=== PATIENT | female | born 1990 | race Caucasian/White ===

== ENCOUNTER 2017-09-03 00:15 | Emergency (ER) | payer OTHER ==
[2017-09-03] MEDS ORDERED: MORPHINE SULFATE 2 MG/ML SYRINGE IM STA (01:02)
--- NOTE | 2017-09-03 01:05 | XR ---
EXAMINATION TYPE: XR ankle complete RT DATE OF EXAM: 09/03/2017 COMPARISON: NONE HISTORY: Ankle pain after injury TECHNIQUE: 3 views FINDINGS: There is bimalleolar fracture of the right ankle with 2 cm lateral displacement of the talu s. There is displacement of the tibia and fibula fragments up to 1 cm. Subtalar joint is intact. IMPRESSION: Displaced bimalleolar fracture of the right ankle with significant lateral subluxation of the talus.
--- NOTE | 2017-09-03 01:06 | XR ---
EXAMINATION TYPE: XR foot complete RT DATE OF EXAM: 09/03/2017 COMPARISON: NONE HISTORY: Pain TECHNIQUE: 3 views FINDINGS: Metatarsals are intact. Tarsal bones are intact. Joint spaces are fairly normal. There is b imalleolar fracture of the ankle. IMPRESSION: The bones of the foot are intact. Ankle fracture noted.
[2017-09-03] MEDS ORDERED: ETOMIDATE 2 MG/ML 10 ML VIAL IVP STA (01:25)
[2017-09-03 01:53] VITALS: RESP 18
--- NOTE | 2017-09-03 02:12 | ED ---
Lower Extremity Injury HPI <Bradford Jain - Last Filed: 09/03/17 02:18> - General Source: patient Mode of arrival: wheelchair Limitations: no limitations <Aleah Harrison - Last Filed: 09/03/17 05:15> - General Chief Complaint: Extremity Injury, Lower Stated Complaint: Ankle injury Time Seen by Provider: 09/03/17 00:38 - History of Present Illness Initial Comments: 26-year-old female patient presents to emergency department today for complaints of right ankle pain. Patient states that she was walking down the sidewalk when her flip flop caught in a manhole and she twisted the ankle and fell. Patient denies hitting her head or losing consciousness during the fall. Patient states the pain to her right ankle is severe. Patient states that radiates down into her foot and upper leg. She denies any numbness or tingling to the foot. She denies any pain in her knee or upper leg. Denies any history of injury to the ankle. Patient denies any headache, neck pain, back pain, chest pain, shortness of breath, dizziness, weakness, abdominal pain, nausea, vomiting, or difficulties with bowel movements or urination. (Aleah Harrison) - Related Data Previous Rx's Medication Instructions Recorded Hydrocodone/Acetaminophen [[place] 1 tab PO Q4HR PRN #18 tab 09/03/17 5-325] Allergies Allergy/AdvReac Type Severity Reaction Status Date / Time Sulfa (Sulfonamide Allergy Itching Verified 09/03/17 00:20 Antibiotics) Review of Systems ROS Other: All systems not noted in ROS Statement are negative. <Bradford Jain - Last Filed: 09/03/17 02:18> ROS Other: All systems not noted in ROS Statement are negative. <Aleah Harrison - Last Filed: 09/03/17 05:15> ROS Statement: Those systems with pertinent positive or pertinent negative responses have been documented in the HPI. Past Medical History Past Medical History: No Reported History History of Any Multi-Drug Resistant Organisms: None Reported Additional Past Surgical History / Comment(s): eustachian tubes. vaginal cyst removed Past Psychological History: No Psychological Hx Reported Smoking Status: Former smoker Past Alcohol Use History: Occasional Past Drug Use History: None Reported <Aleah Harrison - Last Filed: 09/03/17 05:15> General Exam Limitations: no limitations General appearance: alert, in no apparent distress, anxious, other (This is a well-developed, well-nourished adult female patient in mild distress related to pain. Vital signs upon presentation are temperature 98.4F, pulse 1:15, respirations 36, blood pressure 135/91, pulse ox 98% on room air.) Head exam: Present: atraumatic, normocephalic, normal inspection Eye exam: Present: normal appearance, PERRL, EOMI. Absent: scleral icterus, conjunctival injection, periorbital swelling ENT exam: Present: normal exam, normal oropharynx, mucous membranes moist Neck exam: Present: normal inspection, full ROM, other (Nontender, no step-off, no deformity to firm midline palpation of the posterior cervical spine. Full range of motion without pain or limitation.). Absent: tenderness, meningismus, lymphadenopathy Respiratory exam: Present: normal lung sounds bilaterally. Absent: respiratory distress, wheezes, rales, rhonchi, stridor Cardiovascular Exam: Present: normal rhythm, tachycardia, normal heart sounds. Absent: systolic murmur, diastolic murmur, rubs, gallop, clicks GI/Abdominal exam: Present: soft, normal bowel sounds. Absent: distended, tenderness, guarding, rebound, rigid Extremities exam: Present: full ROM, tenderness (Tenderness surrounding the right ankle, fifth metatarsal tenderness), normal capillary refill, other ( Patient has swelling surrounding the right ankle. Tender over the medial lateral malleolus. Pedal and post tibial pulses intact. Skin is pink, warm, and dry. Cap refills less than 3 seconds.). Absent: normal inspection, pedal edema, joint swelling, calf tenderness Back exam: Present: normal inspection. Absent: vertebral tenderness Neurological exam: Present: alert, oriented X3, CN II-XII intact Psychiatric exam: Present: normal affect, normal mood, anxious, other ( hyperventilating) Skin exam: Present: warm, dry, intact, normal color. Absent: rash <Aleah Harrison - Last Filed: 09/03/17 05:15> Course <Bradford Jain - Last Filed: 09/03/17 02:18> <Aleah Harrison - Last Filed: 09/03/17 05:15> Vital Signs 09/03/17 09/03/17 09/03/17 00:16 01:38 01:41 Temperature 98.4 F Pulse Rate 115 H 96 100 Respiratory 36 H 20 20 Rate Blood Pressure 135/91 137/86 127/73 O2 Sat by Pulse 98 98 98 Oximetry 09/03/17 09/03/17 01:51 03:13 Temperature 97 F L Pulse Rate 97 79 Respiratory 18 18 Rate Blood Pressure 147/81 139/70 O2 Sat by Pulse 100 97 Oximetry - Reevaluation(s) Reevaluation #1: 09/03/17 02:18 Patient was reevaluated prior to procedure. Patient and family updated on x- ray findings and concerns and need for sedation. Informed consent given. 09/03/17 02:20 Patient and family were updated following procedure. Patient and family have been notified multiple times not to bear any weight on the right leg. 09/03/17 02:21 Also advised to follow-up with orthopedics Tuesday and the patient will likely need surgery. (Bradford Jain) Procedures - Orthopedic Joint Reduction Joint #1 Consent Obtained: verbal consent Time Out Performed: Yes Side: right Joint Reduction Location: ankle Analgesia: procedural sedation Technique Used: traction/counter-traction Post-Reduction Neuro Exam: intact Post-Reduction Vascular Exam: intact Post Reduction X-Ray Obtained: Yes Post Reduction X-Ray Results: reduced Splint Applied: Yes Patient Tolerated Procedure: well, no complications - Orthopedic Splinting/Casting Injury #1 Side: right Lower Extremity Injury Location: ankle Lower Extremity Immobilizer: posterior splint (Short ankle), stirrup splint - Procedural Sedation Procedural Sedation Start Time: 01:41 Procedural Sedation Stop Time: 02:04 Indications: fracture/dislocation reduction Preparation: night monitor applied, pulse oximeter, capnometry used, supplemental O2 applied IV Etomidate Dose (mgs): 20 Complications: none Patient Tolerated Procedure: well, no complications <Bradford Jain - Last Filed: 09/03/17 02:18> Medical Decision Making <Bradford Jain - Last Filed: 09/03/17 02:18> - Radiology Data Radiology results: report reviewed, image reviewed <Aleah Harrison - Last Filed: 09/03/17 05:15> - Medical Decision Making 26-year-old female patient presented to the emergency department today for complaints of right ankle pain. Physical examination did reveal swelling surrounding the right ankle. She had medial and lateral malleolus tenderness. X-ray of the ankle and foot were obtained and did show bimalleolar fracture with displacement of the talus. My attending Dr. Jain was and we did perform closed reduction of the right ankle with conscious sedation. Patient was placed in an OCL splint, both posterior mold and sugar tong. Patient tolerated this procedure well. Patient will be discharged home with strict non-weight bearing instructions. She is instructed to follow-up with orthopedics for recheck as soon as possible. She'll be given prescription for pain medication. She is instructed to ice and elevate the extremity. Return parameters discussed in detail. She verbalizes understanding and agrees with this plan. (Aleah Harrison) - Radiology Data 3 views of the right foot are obtained. Metatarsals are intact. Also bones are intact. Joint spaces are fairly normal. There is bimalleolar fracture of the ankle. Impression by Dr. Delgado shows the bones of the foot are intact. Ankle fracture noted. 3 views of the right ankle are obtained. There is bimalleolar fracture of the right ankle a 2 cm lateral displacement of the talus. There is displacement of the tibia and fibula fragments up to 1 cm. Subtalar joint is intact. Impression by Dr. Delgado shows displaced bimalleolar fracture of the right ankle with significant lateral subluxation of the talus. 2 views of the right ankle are obtained. There is bimalleolar fracture of the right ankle. There is satisfactory reduction of the fragments compared to first exam. There is no dislocation. Impression by Dr. Delgado shows satisfactory reduction. (Aleah Harrison) Disposition <Bradford Jain - Last Filed: 09/03/17 02:18> Is patient prescribed a controlled substance at d/c from ED?: Yes When asked, does pt state using other controlled substances?: Yes If prescribed controlled substance>3 days was MAPS reviewed?: Prescribed <3 Days If opioid is for acute pain is fill amount 7 days or less?: Yes If Rx opioid, was Start Talking consent form obtained?: Yes Time of Disposition: 02:52 <Aleah Harrison - Last Filed: 09/03/17 05:15> Clinical Impression: Ankle fracture, bimalleolar, closed, Dislocation of right ankle joint Disposition: HOME SELF-CARE Condition: Good Instructions: Ankle Fracture (ED), Splint Care (ED) Additional Instructions: Keep splint in place, do not get wet. Keep leg elevated, apply ice 29th at a time release 4 times daily. Take medications as directed. REMAIN NON- WEIGHTBEARING. Follow-up with marketing production specialist as soon as possible. Return here immediately for any new, worsening, or concerning symptoms. Prescriptions: Hydrocodone/Acetaminophen [[place] 5-325] 1 tab PO Q4HR PRN #18 tab PRN Reason: Pain Referrals: None,Stated [Primary Care Provider] - 1-2 days Spencer Cisneros MD [STAFF PHYSICIAN] - 1-2 days
[2017-09-03] MEDS ORDERED: HYDROmorphone 0.5 MG/0.5 ML SYRINGE IVP STA (02:19)
--- NOTE | 2017-09-03 02:19 | XR ---
EXAMINATION TYPE: XR ankle limited RT DATE OF EXAM: 09/03/2017 COMPARISON: Today HISTORY: Post reduction TECHNIQUE: 2 views FINDINGS: There is bimalleolar fracture of the right ankle. There is satisfactory reduction of the fr agments compared to first exam. There is no dislocation. IMPRESSION: Satisfactory reduction.
[2017-09-03 03:14] VITALS: BP 139/70; PULSE 79; TEMP 97
== END 2017-09-03 03:15 | disposition home or self-care (01) ==
LOC: EC 00:15
DX: S82.841A Displaced bimalleolar fracture of right lower leg, initial encounter for closed fracture (principal); S93.04XA Dislocation of right ankle joint, initial encounter; Z87.891 Personal history of nicotine dependence; Z88.2 Allergy status to sulfonamides; X50.1XXA Overexertion from prolonged static or awkward postures, initial encounter; W10.1XXA Fall (on)(from) sidewalk curb, initial encounter; Y92.480 Sidewalk as the place of occurrence of the external cause
CPT/HCPCS: 73600; 73610; 73630; 99283; 27810; 99152; 96374; 96372; J2270; J1170